=== PATIENT | male | born 2000 | race Asian ===

== ENCOUNTER 2025-03-18 14:21 | Emergency (ER) | payer OTHER ==
[~2025-03-18] VITALS: Ht 185.4 cm; Wt 89.3 kg
[2025-03-18 16:34] VITALS: BP 130/78; TEMP 98; O2SAT 97
== END 2025-03-18 16:45 | disposition home or self-care (01) ==
LOC: M ED 14:21
DX: A08.4 Viral intestinal infection, unspecified (principal)